=== PATIENT | male | born 1955 | race Caucasian/White ===

== ENCOUNTER 2018-05-26 09:24 | Day surgery (SDC) | payer BC ==
[2018-05-26] MEDS ORDERED: PROPOFOL 500 MG/50 ML EMU IV ONE (09:40)
[2018-05-26] MEDS ORDERED: LIDOCAINE HCL 1% MPF 30 SOL ONE (09:40)
[2018-05-26 11:13] VITALS: BP 145/89; PULSE 52; RESP 18; TEMP 97.6; O2SAT 97
== END 2018-05-26 11:55 | disposition home or self-care (01) ==
LOC: SURG 09:24
PROVIDERS: ATTEND Surgery
DX: Z12.11 Encounter for screening for malignant neoplasm of colon (principal); Z80.0 Family history of malignant neoplasm of digestive organs; K57.32 Diverticulitis of large intestine without perforation or abscess without bleeding; D12.0 Benign neoplasm of cecum; D12.5 Benign neoplasm of sigmoid colon
CPT/HCPCS: 99001; J2001; J2704